=== PATIENT | female | born 1960 | race Caucasian/White ===

== ENCOUNTER 2024-07-06 23:47 | Emergency (ER) | payer OTHER ==
[~2024-07-06] VITALS: Ht 160 cm; Wt 46.0 kg
[2024-07-07 00:04] VITALS: O2SAT 100
[2024-07-07] MEDS: BACITRACIN ZINC OINT UDPKT TOP ONE (01:45)
[2024-07-07] MEDS ORDERED: TETANUS, DIPHTHERIA, PERTUSSIS VAC/PF 0.5ML (>10YR OLD) IM ONE (01:45)
[2024-07-07] MEDS: ACETAMINOPHEN WITH CODEINE 300/30MG TABLET PO ONE (01:45)
[2024-07-07] MEDS: LIDOCAINE HCL/PF 1% 10 MG/ML 5ML VIAL INFIL ONE (03:08)
[2024-07-07] MEDS ORDERED: NAPR-1176 MT ×2 (03:22→14:40)
[2024-07-07] MEDS ORDERED: BO1 TP ×2 (03:22→14:40)
[2024-07-07] MEDS ORDERED: CYCL5TAB MT ×2 (03:22→14:40)
[2024-07-07] MEDS: BACITRACIN ZINC OINT UDPKT TOP NR (03:30)
[2024-07-07] MEDS: TETANUS, DIPHTHERIA, PERTUSSIS VAC/PF 0.5ML (>10YR OLD) IM ONE (03:31)
[2024-07-07] MEDS: ACETAMINOPHEN WITH CODEINE 300/30MG TABLET PO NR (03:33)
[2024-07-07 06:30] VITALS: BP 101/60; PULSE 66; RESP 14; TEMP 36.50292; O2SAT 100
== END 2024-07-07 06:33 | disposition home or self-care (01) ==
LOC: ER 23:47
DX: S51.812A Laceration without foreign body of left forearm, initial encounter (principal); M54.50 Low back pain, unspecified; I10 Essential (primary) hypertension; Z79.899 Other long term (current) drug therapy; W18.39XA Other fall on same level, initial encounter; Y93.89 Activity, other specified; Y92.89 Other specified places as the place of occurrence of the external cause; Y99.8 Other external cause status
CPT/HCPCS: 99285; 73090; 12002; 70450; 73502; 72131; 90715; 90471; J3490